=== PATIENT | female | born 1935 | race Caucasian/White ===

== ENCOUNTER 2020-04-18 21:53 | Emergency (ER) | payer MEDICARE, SELFPAY ==
--- NOTE | ~2020-04-18 | CT_ITS ---
EXAMINATION: CT cervical spine wo con DATE: 04/18/2020 22:40 INDICATION: Neck pain TECHNIQUE: Computed tomography (CT) of the cervical spine was performed without intravenous contrast. The dose-length product (DLP) was 410.39 mGy-cm. Automated exposure control and iterative reconstruc tion technique were employed. COMPARISON: None FINDINGS: There is a type II dens fracture with sclerotic margins, a chronic appearance. No acute fra cture is identified. There are 2 mm of anterolisthesis of C4 on C5 and 1 mm retrolisthesis of C5 on C 6. There is complete loss of intervertebral disc space height at C5-6 and C6-7 and moderate loss of i ntervertebral disc space height at C3-4 and C4-5. 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 The prevertebral soft tissues are normal. IMPRESSION: 1. No acute osseous abnormality. 2. Chronic type II dens fracture. 3. Severe cervical spondylosis. Reviewed, dictated and finalized at location A.
--- NOTE | ~2020-04-18 | CT_ITS ---
EXAMINATION: CT brain wo con INDICATION: Head injury COMPARISON: None TECHNIQUE: Standard unenhanced head CT. The dose-length product (DLP) was 605.33 mGy-cm. The mA was a djusted according to patient size. Iterative reconstruction technique was employed. FINDINGS: There is no acute intraparenchymal hemorrhage. No evidence of mass lesion. No evidence of a cute infarction. There is mild periventricular and subcortical hypodensity probably related to small vessel ischemic disease. There is mild prominence of the sulci and ventricles related to cerebral atr ophy. Intracranial calcified cerebral atherosclerosis is noted. There are no extra-axial collections. There is no mass effect or midline shift. Changes in the globes are likely from ocular lens surgery. The visualized sinuses and mastoid air cells are well aerated. IMPRESSION: 1. No acute intracranial abnormality. 2. Age related findings. Reviewed, dictated and finalized at location A.
[2020-04-18 21:55] VITALS: BP 146/79; PULSE 66; RESP 20; TEMP 36.7; O2SAT 99
--- NOTE | 2020-04-18 21:59 | ED.FALL ---
HPI - Fall General Chief Complaint: Fall Stated Complaint: fall Time Seen by Provider: 04/18/20 21:54 History of Present Illness HPI Narrative: Unwitnessed fall at the [facility]. Reportedly c/o hip pain after the fall. She now reports pain in everywhere, but provides no specifics. History limited due to dementia. Related Data Home Medications Medication Instructions Recorded Confirmed white petrolatum each EACH EYE 09/15/19 09/15/19 Allergies Allergy/AdvReac Type Severity Reaction Status Date / Time codeine Allergy Unknown Unknown Verified 04/18/20 22:05 Penicillins Allergy Unknown Unknown Verified 04/18/20 22:05 Sulfa (Sulfonamide Allergy Unknown Unknown Verified 04/18/20 22:05 Antibiotics) Review of Systems Review of Systems: ROS unobtainable: Yes unobtainable due to mental status [facility] Social History Social History (Updated 04/19/20 @ 04:13 by Jose R David MD) Living arrangements: [facility] Exam Const: General: no acute distress and alert HENMT: Head: normal to inspection Eyes: Pupils: Equal, round and reactive pupils present Resp: Effort & Inspection: normal respiratory effort Auscultation: clear to auscultation bilaterally Cardio: Rate: regular rate Rhythm: regular rhythm Back/Spine/Pelvis: Other: Diffuse musculoskeletal tenderness without obvious trauma Skin: Wounds: no wounds Neuro: General: moves all extremities and no focal motor deficits Speech: normal speech Course Vital Signs Vital signs: Vital Signs Temperature 36.7 C 04/18/20 21:55 Pulse Rate 66 04/18/20 21:55 Respiratory Rate 20 04/18/20 21:55 Blood Pressure 146/79 H 04/18/20 21:55 Pulse Oximetry 99 04/18/20 21:55 Temperature 36.7 C 04/18/20 21:55 Pulse Rate 62 04/19/20 00:55 Respiratory Rate 16 04/19/20 00:55 Blood Pressure 130/73 04/19/20 00:55 Pulse Oximetry 95 04/19/20 00:55 MDM - Fall MDM Narrative Medical decision making narrative: CT of head and neck negative. Ambulating at baseline prior to discharge Medical Records Attestation: I reviewed the patient's medical records. Lab Data Attestation: I reviewed the patient's lab results. Discharge Plan Discharge Clinical Impression: Closed head injury Qualifiers: Encounter type: initial encounter Qualified Code(s): S09.90XA - Unspecified injury of head, initial encounter Patient Disposition: [facility] Living Condition: Stable Instructions: Head Injury (ED) Prescriptions: No Action amlodipine 5 mg tablet RF: 0 bupropion HCl 150 mg tablet extended release 24 hr RF: 0 escitalopram oxalate 10 mg tablet RF: 0 isosorbide mononitrate 30 mg tablet extended release 24 hr RF: 0 sitagliptin-metformin [Janumet XR] 50-500 mg tablet, ER multiphase 24 hr RF: 0 lisinopril 10 mg tablet RF: 0 ergocalciferol (vitamin D2) 50,000 unit capsule RF: 0 donepezil 10 mg tablet 10 mg PO ONCE Qty: 1 RF: 0 Myrbetriq 25 mg tablet extended release 24 hr 25 mg PO DAILY Qty: 1 RF: 0 white petrolatum Ointment EACH EYE RF: 0 atorvastatin 40 mg tablet 40 mg PO DAILY Qty: 1 RF: 0 metoclopramide HCl 10 mg tablet 10 mg PO Q6H PRN (Reason: nausea and vomiting) Qty: 1 RF: 0 polyethylene glycol 3350 [Miralax] 17 gram/dose powder 17 gm PO DAILY Qty: 510 RF: 0 acetaminophen 325 mg capsule 650 mg PO Q6H PRN (Reason: fever or pain) Qty: 1 RF: 0 albuterol sulfate 90 mcg/actuation HFA aerosol inhaler 1 inhalation INHALATION Q6H PRN (Reason: shortness of breath or wheezing) Qty: 18 RF: 0 loperamide 2 mg capsule See Rx Instructions PO Q2-4H PRN (Reason: loose stool) Qty: 1 RF: 0 ondansetron 4 mg tablet,disintegrating 4 mg PO Q6H PRN (Reason: nausea and vomiting) Qty: 1 RF: 0 tramadol 50 mg tablet 50 mg PO Q12H PRN (Reason: pain) Qty: 1 RF: 0 diphenhydramine HCl 25 mg capsule 25 mg PO
--- NOTE | 2020-04-18 23:57 | PC.NURSE ---
Patient report called to Margaret, patient's primary careers counsellor at [facility] at [phone]. Patient resting on stretcher, patient offers no complaints at this time. Patient awaiting transport back to her facility.
[2020-04-19 00:04] VITALS: BP 125/73; PULSE 65; RESP 19; O2SAT 97
[2020-04-19 00:55] VITALS: BP 130/73; PULSE 62; RESP 16; O2SAT 95
== END 2020-04-19 00:55 ==
PROVIDERS: Emergency Provider Emergency Medicine; PCP Internal Medicine
DX: S09.90XA Unspecified injury of head, initial encounter (principal); F03.90 Unspecified dementia, unspecified severity, without behavioral disturbance, psychotic disturbance, mood disturbance, and anxiety; W19.XXXA Unspecified fall, initial encounter
CPT/HCPCS: 70450; 72125; 99284

== ENCOUNTER 2020-05-19 11:45 | Emergency (ER) | payer MEDICARE, SELFPAY ==
--- NOTE | ~2020-05-19 | XR_ITS ---
EXAMINATION: XR chest 1V portable DATE: 05/19/2020 16:05 INDICATION: Mental status change. TECHNIQUE: A single frontal view of the chest was obtained. COMPARISON: Chest 2 views 01/05/2019 FINDINGS: Sensitivity is decreased by obesity. Calcified right lung nodules and calcified right hilar lymph nodes are consistent with old granulomatous disease. No pleural effusion or pneumothorax. The heart size is normal. There is a suture anchor in right humeral head. IMPRESSION: 1. No acute cardiopulmonary disease. Reviewed, dictated and finalized at location A.
--- NOTE | ~2020-05-19 | CT_ITS ---
EXAMINATION: CT brain wo con DATE: 05/19/2020 16:00 INDICATION: Mental status change. TECHNIQUE: Computed tomography (CT) of the head was performed without intravenous contrast. The mA wa s adjusted according to patient size. Iterative reconstruction technique was employed. The dose-lengt h product was 605.33 mGy-cm. COMPARISON: Head CT 04/18/2020 FINDINGS: There are scattered areas of low attenuation in the cerebral white matter, which is within normal limits for the patient's age. There is no intracranial hemorrhage or acute infarction. There i s a 1.4 x 0.7 x 0.6 cm calcific extra-axial mass to the left of the cavernous sinus. The ventricles a re normal in size. There is mild mucosal thickening in the paranasal sinuses. The orbits are normal. There is a trace right mastoid effusion. IMPRESSION: 1. Calcified mass of the left of the cavernous sinus, which may be a meningioma or dural calcificatio n. Reviewed, dictated and finalized at location A. IMPRESSION: 1. Calcified mass of the left of the cavernous sinus, which may be a meningioma or dural calcification.
[2020-05-19 11:52] VITALS: BP 135/64; PULSE 68; RESP 18; TEMP 36.7; O2SAT 93
--- NOTE | 2020-05-19 15:02 | ED.GENADULT ---
HPI - General Adult General Chief complaint: Nausea/Vomiting/Diarrhea Stated complaint: N/V Time Seen by Provider: 05/19/20 13:11 History of Present Illness HPI narrative: Patient [facility] because of nausea and vomiting. EMS reported that staff at the [facility] reported that patient vomited 1 time today and that she is more altered than normal. EMS stated that staff was not sure what her normal mentation is but that she has dementia. Patient is alert to self at time of her arrival. No other concern at this time. Patient does not know why she here, currently on 3 L oxygen by nasal cannula, denying any complaint, looks comfortable, patient is DNR. Related Data Home Medications Medication Instructions Recorded Confirmed white petrolatum each EACH EYE 09/15/19 09/15/19 carbidopa-levodopa [Sinemet] 1 tablet PO BID 05/19/20 cranberry mg 05/19/20 emollient [Vanicream] applic TOPICAL 05/19/20 memantine [Namenda] 5 mg PO BID 05/19/20 tazarotene 1 applic TOPICAL DAILY 05/19/20 triamcinolone acetonide 1 applic TOPICAL BID 05/19/20 Allergies Allergy/AdvReac Type Severity Reaction Status Date / Time codeine Allergy Unknown Unknown Verified 04/18/20 22:05 Penicillins Allergy Unknown Unknown Verified 04/18/20 22:05 Sulfa (Sulfonamide Allergy Unknown Unknown Verified 04/18/20 22:05 Antibiotics) Review of Systems Review of Systems: Narrative: Unable to obtain because of dementia PMFSH Past Medical History Medical History Dementia in other diseases classified elsewhere without behavioral disturbance Essential (primary) hypertension Type 2 diabetes mellitus with complications Exam Narrative: Exam Narrative: General appearance: Well-developed, well-nourished, patient laying down in bed, looks comfortable, does not look in pain or distress Skin: Normal color Head: Normocephalic, nontraumatic Eyes: Clear conjunctiva ENT: Oropharynx normal, ears normal, nose normal Neck: Supple, nontender Chest and respiratory: Airway patent, no respiratory distress, no accessory muscle use Heart: Regular rate/rhythm Abdomen: Soft, nontender, no organomegaly, quiet bowel sounds Vascular: Normal peripheral pulses, normal capillary refill. Musculoskeletal: Normal range of motion, nontender back Neurologic: Alert and oriented to her name and age only, when he asked her anything else she just look at you without answering Course Course Emergency Course: Stable Vital Signs Vital signs: Vital Signs Temperature 36.7 C 05/19/20 11:52 Pulse Rate 68 05/19/20 11:52 Respiratory Rate 18 05/19/20 11:52 Blood Pressure 135/64 05/19/20 11:52 Pulse Oximetry 93 05/19/20 11:52 Temperature 36.4 C 05/19/20 16:33 Pulse Rate 60 05/19/20 16:33 Respiratory Rate 20 05/19/20 16:33 Blood Pressure 133/68 05/19/20 16:33 Pulse Oximetry 96 05/19/20 16:33 Medical Decision Making MDM Narrative Medical decision making narrative: Vomiting, change mental status. Nonspecific symptoms. My plan to get labs, UA, CT head rule out any underlying cause. Vital Signs Vital Signs: Vital Signs Temperature 36.7 C 05/19/20 11:52 Pulse Rate 68 05/19/20 11:52 Respiratory Rate 18 05/19/20 11:52 Blood Pressure 135/64 05/19/20 11:52 Pulse Oximetry 93 05/19/20 11:52 Temperature 36.4 C 05/19/20 16:33 Pulse Rate 60 05/19/20 16:33 Respiratory Rate 20 05/19/20 16:33 Blood Pressure 133/68 05/19/20 16:33 Pulse Oximetry 96 05/19/20 16:33 Lab Data Result diagrams: 05/19/20 15:29 05/19/20 15:29 Labs: Lab Results 05/19/20
[2020-05-19 15:27] LABS: Add Urine Microscopic? YES; Appearance Urine Clear (Clear); Bacteria Urine Trace /hpf; Bilirubin Urine Negative (Negative); Blood Urine Negative (Negative); Color Urine Yellow (Yellow); Glucose Urine UA 1+ mg/dL (Negative); Ketones Urine Trace mg/dL (Negative); Leukocyte Esterase Ur Negative LEU/UL (Negative); Mucus Urine Rare /lpf; Nitrate Urine Positive (Negative); Protein Urine Negative (Negative); RBC Urine 0-2 /hpf (0-2); Specific Grav Ur 1.017 (1.001-1.035); Squamous Epithelial Cell Urine Rare /hpf (Few); Urobilinogen Urine Negative mg/dL (<2.0); WBC Urine 0-3 /hpf
[2020-05-19 15:35] LABS: Basophils Absolute Auto 0.1 K/mm3 (0.0-0.1); Basophils Percent Auto 0.5 % (0.2-1.2); Eosinophils Absolute Auto 0.1 K/mm3 (0-0.3); Eosinophils Percent Auto 0.7 % (0-4.4); Hematocrit 37.3 % (37.0-47.0); Immature Granulocyte Absolute 0.07 K/mm3 (0.00-0.031); Immature Granulocyte Percent A 0.7 % (0-0.5); Lymphocytes Absolute Auto 1.43 K/mm3 (0.9-3.2); Lymphocytes Percent Auto 14.9 % (18.3-44.2); Mean Corpuscular HGB Conc 32.2 g/dl (32-36); Mean Corpuscular Hemoglobin 28.2 pg (26-34); Mean Corpuscular Volume 87.6 fl (80-100); Mean Platelet Volume 11.2 fl (7.4-10.4); Monocytes Absolute Auto 0.9 K/mm3 (0.1-0.6); Monocytes Percent Auto 9.1 % (2.6-8.5); Neutrophils Absolute Auto 7.1 K/mm3 (1.3-6.7); Neutrophils Percent Auto 74.1 % (45.5-73.1); Platelet Count Result 217 k/mm3 (150-375); Red Blood Count 4.26 M/mm3 (4.2-5.4); Red Cell Distribution Width 14.3 % (11.5-14.5); White Blood Count 9.6 K/mm3 (4.5-10.0)
[2020-05-19 15:47] LABS: Alanine Aminotransferase 10 U/L (4-35); Albumin Level 3.5 g/dL (3.5-5.1); Alkaline Phosphatase 82 U/L (38-126); Aspartate Amino Transferase 18 U/L (14-36); Bilirubin,Total 0.2 mg/dL (0.2-1.3); Blood Urea Nitrogen 17 mg/dL (7-17); Calcium 8.7 mg/dL (8.4-10.2); Carbon Dioxide 27 mmol/L (22-30); Chloride 104 mmol/L (98-107); Estimated CRCL calculation 41 ml/min; Estimated Glomerular Filt Rate > 60; Glucose 132 mg/dL (65-105); Lipase 85 U/L (23-300); Potassium 3.4 mmol/L (3.4-5.0); Sodium 138 mmol/L (137-145)
[2020-05-19 15:58] LABS: Troponin I < 0.012 ng/mL (0.000-0.034)
[2020-05-19 16:33] VITALS: BP 133/68; PULSE 60; RESP 20; TEMP 36.4; O2SAT 96
[2020-05-19 17:36] VITALS: BP 132/59; PULSE 59; RESP 16; O2SAT 94
[2020-05-19 18:32] VITALS: BP 139/87; PULSE 64; RESP 18; TEMP 36.9; O2SAT 97
[2020-05-19 22:04] VITALS: BP 148/75; PULSE 64; RESP 18; TEMP 37.1; O2SAT 95
== END 2020-05-19 22:04 ==
PROVIDERS: Emergency Provider Emergency Medicine; PCP Internal Medicine
DX: N39.0 Urinary tract infection, site not specified (principal); I10 Essential (primary) hypertension; E11.9 Type 2 diabetes mellitus without complications; F03.90 Unspecified dementia, unspecified severity, without behavioral disturbance, psychotic disturbance, mood disturbance, and anxiety
CPT/HCPCS: 36415; 51701; 70450; 71045; 80053; 81001; 83690; 84484; 85025; 96365; 99284; J0696

== ENCOUNTER 2020-06-16 22:52 | Emergency (ER) | payer MEDICARE, MEDICAID, SELFPAY ==
--- NOTE | ~2020-06-16 | CT_ITS ---
EXAMINATION: CT brain wo con, CT cervical spine wo con EXAM DATE: 06/16/2020 23:17 INDICATION: Fall, posterior head injury. TECHNIQUE: Spiral CT of the head was performed without contrast. Axial, coronal and sagittal images were reviewed. Spiral CT of the cervical spine was performed without contrast. Axial images were rev iewed. Coronal and sagittal reformatted images were also reviewed. The dose-length product (DLP) fo r this examination was 605.33 (accession [id number]), 411.08 (accession [id number]) mGy-cm. The exposure was tailored according to patient size, and iterative reconstruction (ASIR) was used as additional dose reduction technique. Comparison is made to prior examination from 05/19/2020, 0. FINDINGS: HEAD CT: There is no acute intraparenchymal hemorrhage. No evidence of intraparenchymal brain mass l esion. No evidence of acute infarction. There is mild periventricular and subcortical hypodensity, n onspecific but probably related to small vessel ischemic disease. There is moderate prominence of t he sulci and ventricles related to cerebral atrophy. There is intracranial carotid arteriosclerosis . There is no mass effect or midline shift. There is no obstructive hydrocephalus suspected. There are no extra-axial collections. There are no acute calvarial fractures. The orbits are unremarkabl e. Soft tissue is unremarkable. The visualized sinuses and mastoid air cells are well aerated. CERVICAL CT: Again there is osseous fusion of the odontoid process to anterior arch of C1, with chron ic appearing type II odontoid fracture versus congenital nonunion of the odontoid. Appearance is unch anged compared to prior study, chronic. No subluxation of this. There is no evidence of acute cervica l fracture. Pre-dens space is normal. Prevertebral soft tissue is normal. There are no soft tissue abnormalities identified. There is no disc space widening or traumatic vertebral body subluxation s uspected. Advanced cervical spondylosis again noted. IMPRESSION: 1. No acute intracranial findings or cervical fracture. 2. 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 3. Advanced cervical spondylosis. 4. Age-related intracranial findings Reviewed, dictated and finalized at location A. IMPRESSION: 1. No acute intracranial findings or cervical fracture. 2. 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 3. Advanced cervical spondylosis. 4. Age-related intracranial findings
[2020-06-16 22:55] VITALS: BP 108/49; PULSE 73; RESP 18; TEMP 36.8; O2SAT 96
--- NOTE | 2020-06-16 22:57 | ED.FALL ---
HPI - Fall General Chief Complaint: Fall Stated Complaint: FALL History of Present Illness HPI Narrative: History limited by gia Brought in from alf after a fall. She fell backwards in the restroom and struck the back of her head. Per EMS she was having some neck pain. When I ask she tells me that she hurts everywhere. Related Data Home Medications Medication Instructions Recorded Confirmed carbidopa-levodopa [Sinemet] 1 tablet PO BID 05/19/20 cranberry mg 05/19/20 memantine [Namenda] 5 mg PO BID 05/19/20 Allergies Allergy/AdvReac Type Severity Reaction Status Date / Time codeine Allergy Unknown Unknown Verified 06/16/20 23:11 Sulfa (Sulfonamide Allergy Unknown Unknown Verified 06/16/20 23:11 Antibiotics) Penicillins AdvReac Unknown Nausea Verified 06/16/20 23:11 Review of Systems Review of Systems: ROS unobtainable: Yes unobtainable due to mental status PMFSH Past Medical History Medical History Dementia in other diseases classified elsewhere without behavioral disturbance Essential (primary) hypertension Type 2 diabetes mellitus with complications Social History Social History (Updated 06/17/20 @ 04:15 by Jose R David MD) Living arrangements: alf Exam Const: General: no acute distress and alert Nutritional Appearance: well nourished Other: Oriented to self HENMT: Head: normal to inspection Eyes: Pupils: Equal, round and reactive pupils present Neck: Neck: normal visual inspection Resp: Effort & Inspection: normal respiratory effort Auscultation: clear to auscultation bilaterally Cardio: Rate: regular rate Rhythm: regular rhythm Back/Spine/Pelvis: Other: No obvious midline tenderness Skin: General skin exam: normal color Wounds: no wounds Neuro: General: moves all extremities and CN's II-XI intact bilaterally Speech: normal speech Extrem: General: normal to inspection Course Vital Signs Vital signs: Vital Signs Temperature 36.8 C 06/16/20 22:55 Pulse Rate 73 06/16/20 22:55 Respiratory Rate 18 06/16/20 22:55 Blood Pressure 108/49 L 06/16/20 22:55 Pulse Oximetry 96 06/16/20 22:55 Temperature 36.8 C 06/16/20 22:55 Pulse Rate 98 06/17/20 02:29 Respiratory Rate 20 06/17/20 02:29 Blood Pressure 125/73 06/17/20 02:29 Pulse Oximetry 98 06/17/20 02:29 MDM - Fall MDM Narrative Medical decision making narrative: When asked she reports pain and tenderness everywhere. When palpated she does not respond as though she has any tenderness. No obvious injury noted. CT of the head and neck negative. Medical Records Attestation: I reviewed the patient's medical records. Imaging Data Radiologist's impression: ITS Impressions Cervical Spine CT 06/16/20 23:21 IMPRESSION: 1. No acute intracranial findings or cervical fracture. 2. 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 3. Advanced cervical spondylosis. 4. Age-related intracranial findings Head CT 06/16/20 23:21 IMPRESSION: 1. No acute intracranial findings or cervical fracture. 2. 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 3. Advanced cervical spondylosis. 4. Age-related intracranial findings Discharge Plan Discharge Clinical Impression: Neck pain Patient Disposition: NH [facility]idential/[facility]st Living Condition: Stable Instructions: Neck Pain (ED) Prescriptions: No Action carbidopa-levodopa [Sinemet] 25-250 mg Tablet 1 tablet PO BID RF: 0 cranberry 400 mg Capsule RF: 0 memantine [Namenda] 5 mg Tablet 5 mg PO BID RF: 0 nitrofurantoin monohyd/m-cryst [Macrobid] 100 mg capsule 100 mg PO Q12H 5 Days Qty: 10 RF: 0 amlodipine 5 mg tablet RF: 0 bupropion HCl 150 mg tablet extended release 24 hr RF: 0 escitalopram oxa
[2020-06-17 00:27] VITALS: BP 113/67; PULSE 68; RESP 18; O2SAT 97
--- NOTE | 2020-06-17 00:47 | PC.NURSE ---
steven darby converse with fredrick tubbs
--- NOTE | 2020-06-17 02:24 | PC.NURSE ---
awaiting mendiola since 99, they advised 330, pending to call another ems.
[2020-06-17 02:29] VITALS: BP 125/73; PULSE 98; RESP 20; O2SAT 98
--- NOTE | 2020-06-17 02:53 | PC.NURSE ---
yvonne pending for transport
== END 2020-06-17 03:05 ==
PROVIDERS: Emergency Provider Emergency Medicine; PCP Internal Medicine
DX: M54.2 Cervicalgia (principal); I10 Essential (primary) hypertension; E11.9 Type 2 diabetes mellitus without complications; F03.90 Unspecified dementia, unspecified severity, without behavioral disturbance, psychotic disturbance, mood disturbance, and anxiety; M47.812 Spondylosis without myelopathy or radiculopathy, cervical region
CPT/HCPCS: 70450; 72125; 99284

== ENCOUNTER 2020-08-03 13:27 | Emergency (ER) | payer MEDICARE, MEDICAID, SELFPAY ==
--- NOTE | ~2020-08-03 | CT_ITS ---
EXAMINATION: CT brain wo con DATE: 08/03/2020 17:41 INDICATION: Altered mental status TECHNIQUE: Computed tomography (CT) of the head was performed without intravenous contrast. Sagittal and coronal reconstructions were performed. The mA was adjusted according to patient size. Iterative reconstruction technique was employed. The dose-length product was 605.33 mGy-cm. COMPARISON: head CT dated 06/16/2020 and 05/19/2020 FINDINGS: No acute intracranial hemorrhage or acute infarction. There is symmetric prominence of the sulci and subarachnoid spaces overlying the convexities consistent with moderate age-appropriate diffuse cerebr al volume loss. Mild scattered periventricular and subcortical white matter hypoattenuation consiste nt with chronic small vessel ischemic disease. 12 x 7 x 6 mm calcified extra-axial mass to the left of the cavernous sinus most likely either meningioma or dural calcification. No other masses identifi ed. The orbits are normal. Mild mucosal thickening in the bilateral ethmoid sinuses. Unchanged trace right mastoid effusion. Intracranial calcified cerebral atherosclerosis is noted. IMPRESSION: 1. No acute intracranial process. 2. Chronic small calcified extra-axial mass to the left of the cavernous sinus most likely either a m eningioma or dural calcification. 3. Age-related changes including moderate diffuse volume loss and mild scattered white matter hypoatt enuation consistent with chronic small vessel ischemic disease. Reviewed, dictated and finalized at location A. IMPRESSION: 1. No acute intracranial process. 2. Chronic small calcified extra-axial mass to the left of the cavernous sinus most likely either a meningioma or dural calcification. 3. Age-related changes including moderate diffuse volume loss and mild scattere d white matter hypoattenuation consistent with chronic small vessel ischemic di sease.
--- NOTE | ~2020-08-03 | CT_ITS ---
EXAMINATION: CT abdomen pelvis w con DATE: 08/03/2020 17:41 INDICATION: Abdominal pain TECHNIQUE: Computed tomography (CT) of the abdomen and pelvis was performed with 100 mL Omnipaque-350 intravenous contrast. Automated exposure control and iterative reconstruction technique were employe d. The dose-length product was 641.80 mGy-cm. COMPARISON: None FINDINGS: Mosaic attenuation in the bilateral lower lungs likely combination of atelectasis and subsegmental ai r trapping related to small airway disease. There are few scattered bilateral calcified pulmonary nod ules as well as calcified bilateral hilar and mediastinal lymph nodes and a few splenic calcification s, all consistent with old granulomatous disease. Heart size is normal. No pericardial or pleural eff usion. Moderate-sized sliding-type hiatal hernia. Cholecystectomy clips at the gallbladder fossa. Digna er and bilateral adrenal glands are normal. A few punctate calcifications along the otherwise normal- appearing pancreas which may represent sequela of chronic pancreatitis. Bilateral renal cysts the lar gest on the left measuring 2.9 cm. There is extensive colonic diverticulosis with a sigmoid predomina nce. There is no adjacent inflammatory change to suggest diverticulitis. 1.2 cm likely lipoma along the ascending colon. Bowels are otherwise unremarkable with no obstruction. The appendix is not visu alized. No pericecal inflammatory change to suggest acute appendicitis. Bladder, uterus and bilateral adnexa are unremarkable. No free intraperitoneal gas or fluid. No pathologically enlarged abdominal or pelvic lymphadenopathy. Severe thoracolumbar spondylosis. L4 and L5 laminectomies with L4-L5 combi jony instrumented anterior and posterior spinal fusion. Chronic appearing compression fractures at T10 -T12 with the age indeterminate but more recent-appearing L1 compression fracture. There are retained leads in the posterior paraspinal soft tissues at the lumbar spine. IMPRESSION: 1. No acute intra-abdominal/pelvic process. 2. Extensive diverticulosis. 3. Moderate-sized sliding-type hiatal hernia. 4. Relatively recent-appearing L1 compression fracture with more chronic appearing compression fractu res at T10-T12. Reviewed, dictated and finalized at location A. IMPRESSION: 1. No acute intra-abdominal/pelvic process. 2. Extensive diverticulosis. 3. Moderate-sized sliding-type hiatal hernia. 4. Relatively recent-appearing L1 compression fracture with more chronic appear ing compression fractures at T10-T12.
[2020-08-03 13:54] VITALS: BP 132/87; PULSE 76; RESP 16; TEMP 36.5; O2SAT 97
[2020-08-03 15:49] LABS: Basophils Absolute Auto 0.1 K/mm3 (0.0-0.1); Basophils Percent Auto 0.5 % (0.2-1.2); Eosinophils Percent Auto 0.3 % (0-4.4); Hematocrit 43.6 % (37.0-47.0); Hemoglobin 14.3 g/dL (12.0-15.0); Immature Granulocyte Absolute 0.15 K/mm3 (0.00-0.031); Immature Granulocyte Percent A 1.3 % (0-0.5); Lymphocytes Absolute Auto 1.09 K/mm3 (0.9-3.2); Lymphocytes Percent Auto 9.5 % (18.3-44.2); Mean Corpuscular HGB Conc 32.8 g/dl (32-36); Mean Corpuscular Hemoglobin 28.4 pg (26-34); Mean Corpuscular Volume 86.7 fl (80-100); Mean Platelet Volume 12.2 fl (7.4-10.4); Monocytes Absolute Auto 0.7 K/mm3 (0.1-0.6); Neutrophils Absolute Auto 9.5 K/mm3 (1.3-6.7); Neutrophils Percent Auto 82.4 % (45.5-73.1); Platelet Count Result 223 k/mm3 (150-375); Red Blood Count 5.03 M/mm3 (4.2-5.4); Red Cell Distribution Width 14.3 % (11.5-14.5); White Blood Count 11.5 K/mm3 (4.5-10.0)
[2020-08-03 16:06] LABS: Chloride 105 mmol/L (98-107)
[2020-08-03] MEDS: SODIUM CHLORIDE 0.9% IV 1,000 ML 999 ML IV CONT ×2 (16:10→18:34)
[2020-08-03] MEDS: ONDANSETRON INJ 4 MG/2 ML VIAL IV PUSH (16:11)
[2020-08-03 16:15] VITALS: BP 119/72; PULSE 87; RESP 17; O2SAT 100
[2020-08-03 16:28] LABS: Albumin Level 3.8 g/dL (3.5-5.1); Alkaline Phosphatase 122 U/L (38-126); Anion Gap 9 mmol/L (8-16); Aspartate Amino Transferase 15 U/L (14-36); Bilirubin,Total 0.5 mg/dL (0.2-1.3); Blood Urea Nitrogen 21 mg/dL (7-17); Calcium 9.8 mg/dL (8.4-10.2); Carbon Dioxide 24 mmol/L (22-30); Estimated CRCL calculation 46 ml/min; Estimated Glomerular Filt Rate > 60; Glucose 149 mg/dL (65-105); Lipase 86 U/L (23-300); Potassium 4.6 mmol/L (3.4-5.0); Sodium 138 mmol/L (137-145)
[2020-08-03 16:52] LABS: Alanine Aminotransferase < 4 U/L (4-35)
--- NOTE | 2020-08-03 17:18 | PC.NURSE ---
Pt taken to CT scan
--- NOTE | 2020-08-03 17:42 | ED.GENADULT ---
HPI - General Adult General Chief complaint: Abdominal Pain Stated complaint: NV, lethargy, confusion Time Seen by Provider: 08/03/20 13:50 Source: family and EMS History of Present Illness HPI narrative: Patient is a 84 y/o female sent by [facility] for vomiting, diarrhea and decreased oral intake. Daughter states that she was told by staff at [facility] that patient has been having these symptoms for 3 days. There is no known alleviating or exacerbating factor. Patient is poor historian and unable to provide reliable history. Related Data Home Medications Medication Instructions Recorded Confirmed carbidopa-levodopa [Sinemet] 1 tablet PO BID 05/19/20 cranberry mg 05/19/20 memantine [Namenda] 5 mg PO BID 05/19/20 Allergies Allergy/AdvReac Type Severity Reaction Status Date / Time codeine Allergy Unknown Unknown Verified 08/03/20 14:22 Sulfa (Sulfonamide Allergy Unknown Unknown Verified 08/03/20 14:22 Antibiotics) Penicillins AdvReac Unknown Nausea Verified 08/03/20 14:22 Review of Systems Review of Systems: ROS unobtainable: Yes unobtainable due to mental status Exam Const: General: no acute distress and well developed Orientation/consciousness: oriented to person and confusion HENMT: Head: normocephalic Ears: external ears normal General nose exam: Normal external nose present Eyes: General: appearance normal, both eyes and all related structures Conjunctivae: conjunctivae normal Neck: Neck: normal visual inspection and full ROM Chest: Chest palpation & inspection: normal inspection of the chest and no tenderness Resp: Effort & Inspection: normal respiratory effort Auscultation: clear to auscultation bilaterally Cardio: Rate: regular rate Rhythm: regular rhythm GI: GI Palp: No abdominal tenderness and Yes Soft to palpation Skin: General skin exam: normal color and turgor normal Neuro: General: oriented to person and confusion Cognition (Neuro): abnormal cognition Extrem: General: normal to inspection, full ROM and no pedal edema Psych: Appearance: grossly normal Mental Status: mental status grossly normal Affect: normal affect Course Vital Signs Vital signs: Vital Signs Temperature 36.5 C 08/03/20 13:54 Pulse Rate 76 08/03/20 13:54 Respiratory Rate 16 08/03/20 13:54 Blood Pressure 132/87 08/03/20 13:54 Pulse Oximetry 97 08/03/20 13:54 Temperature 36.5 C 08/03/20 13:54 Pulse Rate 70 08/03/20 21:22 Respiratory Rate 16 08/03/20 21:22 Blood Pressure 134/63 08/03/20 21:22 Pulse Oximetry 96 08/03/20 21:22 Medical Decision Making Vital Signs Vital Signs: Vital Signs Temperature 36.5 C 08/03/20 13:54 Pulse Rate 76 08/03/20 13:54 Respiratory Rate 16 08/03/20 13:54 Blood Pressure 132/87 08/03/20 13:54 Pulse Oximetry 97 08/03/20 13:54 Temperature 36.5 C 08/03/20 13:54 Pulse Rate 70 08/03/20 21:22 Respiratory Rate 16 08/03/20 21:22 Blood Pressure 134/63 08/03/20 21:22 Pulse Oximetry 96 08/03/20 21:22 Lab Data Result diagrams: 08/03/20 15:40 08/03/20 15:40 Labs: Lab Results 08/03/20 08/03/20 08/03/20 Range/Units 15:40 15:40 20:38 WBC 11.5 H (4.5-10.0) K/mm3 RBC 5.03 (4.2-5.4) M/mm3 Hgb 14.3 (12.0-15.0) g/dL Hct 43.6 (37.0-47.0) % MCV 86.7 (80-100) fl MCH 28.4 (26-34) pg MCHC 32.8 (32-36) g/dl RDW 14.3 (11.5-14.5) % Plt Count 223 (150-375) k/mm3 MPV 12.2 H (7.4-10.4) fl Immature Gran % (Auto) 1.3 H (0-0.5) % Neut % (Auto) 82.4 H (45.5-73.1) % Lymph % (Auto) 9.5 L (18.3-44.2) % [place] % (Auto) 6.0 (2.6-8.5) % Eos % (Auto) 0.3 (0-4.4) % Baso % (Auto) 0.5 (0.2-1.2) % Lymph # (Auto) 1.09 (0.9-3.2) K/mm3 [place] # (Auto) 0.7 H (0.1-0.6) K/mm3 Eos # (Auto) 0.0 (0-0.3) K/mm3 Baso # (Auto) 0.1 (0.0-0.1) K/mm3 Abs Immat Gran (auto) 0.15 H (0.00-0.031) K/mm3 Absolute Neuts (auto) 9.5 H (
--- NOTE | 2020-08-03 17:48 | PC.NURSE ---
1 unsuccessful attempt at straight cath.
--- NOTE | 2020-08-03 18:19 | PC.NURSE ---
Several attempts to straight cath pt was attempted with no success. Pt is extremely swollen and is unable to be cathed. Informed Dr. Stokes of this and he states thats ok she will have to pee eventually .
[2020-08-03 20:34] VITALS: BP 126/87; PULSE 85; RESP 18; O2SAT 95
--- NOTE | 2020-08-03 20:35 | PC.NURSE ---
bladder scan 387ml
[2020-08-03 20:46] LABS: Add Urine Microscopic? YES; Appearance Urine Cloudy (Clear); Bacteria Urine 4+ /hpf; Bilirubin Urine Negative (Negative); Blood Urine Negative (Negative); Color Urine Yellow (Yellow); Glucose Urine UA Negative (Negative); Ketones Urine Trace mg/dL (Negative); Leukocyte Esterase Ur 3+ LEU/UL (Negative); Mucus Urine Heavy /lpf; Nitrate Urine Positive (Negative); Protein Urine Negative (Negative); Squamous Epithelial Cell Urine Few /hpf (Few); Urobilinogen Urine Negative mg/dL (<2.0); WBC Clumps Urine Present /HPF; WBC Urine >75 /hpf
[2020-08-03 20:59] LABS: Specific Grav Ur 1.056 (1.001-1.035)
[2020-08-03 21:22] VITALS: BP 134/63; PULSE 70; RESP 16; O2SAT 96
[2020-08-03 23:02] VITALS: BP 110/67; PULSE 87; RESP 16; O2SAT 95
[2020-08-03 23:52] VITALS: BP 117/74; PULSE 82; RESP 18; O2SAT 95
== END 2020-08-04 01:00 ==
PROVIDERS: Emergency Provider Emergency Medicine; PCP Internal Medicine
DX: R19.7 Diarrhea, unspecified (principal); R11.10 Vomiting, unspecified; N39.0 Urinary tract infection, site not specified
CPT/HCPCS: 36415; 70450; 74177; 80053; 81001; 83690; 85025; 87077; 87086; 87088; 87186; 96361; 96374; 99284; J2405; J7030; Q9967

== ENCOUNTER 2020-08-15 10:00 | Inpatient (IN) | payer MEDICARE, MEDICAID, SELFPAY ==
[2020-08-15] VITALS (12 sets, daily range): BP systolic 63–161; BP diastolic 38–127; PULSE 81–101; RESP 16–24; TEMP 36.2–37.3; O2SAT 84–100
--- NOTE | 2020-08-15 | ECG_ITS ---
Measurements Intervals [place] Rate: 101 P: 54 NJ: 144 QRS: 68 QRSD: 117 T: 10 QT: 342 QTc: 444 Interpretive Statements SINUS TACHYCARDIA FREQUENT ATRIAL PREMATURE COMPLEXES INTRAVENTRICULAR CONDUCTION DELAY BASELINE ARTIFACT- I, II, AVR, AVL, V1-V3 ABNORMAL ECG Electronically Signed On 08-16-2020 7:01:55 CDT by Lobito Moore D.O.
--- NOTE | ~2020-08-15 | XR_ITS ---
XR chest 1V portable 08/15/2020 10:56 Indication: Altered mental status Procedure: AP portable chest Comparison: 05/19/2020 Findings: Heart size normal for technique. No focal air space disease, pulmonary edema, pleural effus ion or suspected pneumothorax. Scattered calcified granulomas. No acute osseous abnormality. Impression: 1: No acute cardiopulmonary disease. Reviewed, dictated and finalized at location A. Impression: 1: No acute cardiopulmonary disease.
--- NOTE | ~2020-08-15 | CT_ITS ---
EXAMINATION: CT brain wo con DATE: 08/15/2020 10:09 INDICATION: Possible stroke TECHNIQUE: Computed tomography (CT) of the head was performed without intravenous contrast. The dose- length product was 605.33 mGy-cm. Automated exposure control and iterative reconstruction technique w ere employed. COMPARISON: CT dated 08/03/2012 FINDINGS: Generalized atrophy. Generalized atrophy. There are scattered moderate periventricular and subcortical white matter changes, most likely related to small vessel ischemic disease (microangiopat hy). No acute intracranial hemorrhage, infarction, mass or mass effect. Chronic small calcified extra -axial mass left of the cavernous sinus, most likely dural calcification or meningioma. No significan t change. Midline sagittal images demonstrate a normal corpus callosum and craniovertebral junction. There is hyperostosis frontalis interna. IMPRESSION: 1. No acute intracranial abnormality. No significant change. Reviewed, dictated and finalized at location A.
[2020-08-15 10:15] LABS: Glucose Point of Care 166 (65-105)
[2020-08-15 10:56] LABS: Basophils Absolute Auto 0.1 K/mm3 (0.0-0.1); Basophils Percent Auto 0.4 % (0.2-1.2); Eosinophils Percent Auto 0.1 % (0-4.4); Hematocrit 43.8 % (37.0-47.0); Hemoglobin 13.9 g/dL (12.0-15.0); Immature Granulocyte Absolute 0.41 K/mm3 (0.00-0.031); Immature Granulocyte Percent A 2.6 % (0-0.5); Lymphocytes Absolute Auto 1.11 K/mm3 (0.9-3.2); Mean Corpuscular HGB Conc 31.7 g/dl (32-36); Mean Corpuscular Hemoglobin 28.1 pg (26-34); Mean Corpuscular Volume 88.5 fl (80-100); Mean Platelet Volume 12.6 fl (7.4-10.4); Monocytes Absolute Auto 1.2 K/mm3 (0.1-0.6); Monocytes Percent Auto 7.4 % (2.6-8.5); Neutrophils Percent Auto 82.5 % (45.5-73.1); Platelet Count Result 122 k/mm3 (150-375); Red Blood Count 4.95 M/mm3 (4.2-5.4); Red Cell Distribution Width 15.2 % (11.5-14.5); White Blood Count 15.8 K/mm3 (4.5-10.0)
[2020-08-15 11:01] LABS: Add Urine Microscopic? YES; Appearance Urine Cloudy (Clear); Bacteria Urine Trace /hpf; Bilirubin Urine 1+ (Negative); Blood Urine Negative (Negative); Color Urine Amber (Yellow); Glucose Urine UA Negative (Negative); Hyaline Casts Urine 20-29 /lpf; INR 1.2; Ketones Urine Trace mg/dL (Negative); Leukocyte Esterase Ur Negative LEU/UL (Negative); Mucus Urine Rare /lpf; Nitrate Urine Negative (Negative); Protein Urine 1+ mg/dL (Negative); Prothrombin Time 14.4 Seconds (11.1-14.7); RBC Urine 0-2 /hpf (0-2); Specific Grav Ur 1.023 (1.001-1.035); Squamous Epithelial Cell Urine Many /hpf (Few)
[2020-08-15 11:02] LABS: Partial Thromboplastin Time 24.8 SECONDS (22.3-36.8)
[2020-08-15 11:18] LABS: Troponin I 0.361 ng/mL (0.000-0.034)
[2020-08-15] MEDS: SODIUM CHLORIDE 0.9% IV 1,000 ML 999 ML IV CONT (11:34)
[2020-08-15 11:38] LABS: Alanine Aminotransferase 15 U/L (4-35); Albumin Level 3.6 g/dL (3.5-5.1); Alkaline Phosphatase 96 U/L (38-126); Anion Gap 13 mmol/L (8-16); Aspartate Amino Transferase 57 U/L (14-36); Bilirubin,Total 0.7 mg/dL (0.2-1.3); Blood Urea Nitrogen 58 mg/dL (7-17); CRP 3.1 mg/dL (<1.0); Calcium 9.8 mg/dL (8.4-10.2); Carbon Dioxide 22 mmol/L (22-30); Chloride 111 mmol/L (98-107); Estimated CRCL calculation 16 ml/min; Estimated Glomerular Filt Rate 25; Glucose 159 mg/dL (65-105); Potassium 5.1 mmol/L (3.4-5.0); Sodium 146 mmol/L (137-145)
--- NOTE | 2020-08-15 11:45 | PC.NURSE ---
dr rocha made aware of hypotensive bp order given to start 1 l NS bolus
--- NOTE | 2020-08-15 11:53 | ED.AMS ---
HPI - Altered Mental Status General Chief Complaint: Altered Mental Status Stated Complaint: ams Time Seen by Provider: 08/15/20 10:33 Source: EMS and other (alf phone call) Mode of arrival: EMS History of Present Illness HPI narrative: Patient is 84 years old white female brought to the emergency room by ambulance because of unresponsiveness noticed at 9 AM. Last time patient was in her normal base of health, was last night. Patient had similar symptoms a few days ago was hospitalized at [facility], diagnosis of urinary tract infection, currently on cephalexin. The [facility] staff deny that the patient had any fever, chills, nausea, vomiting, coughing or anything unusual yesterday. Patient is DNR. I was able to talk to the patient's son, phone number is [phone] and confirmed that the patient is DNR, DNI also no invasive procedure including central line. complaint: confusion Related Data Home Medications Medication Instructions Recorded Confirmed cranberry 425 mg PO BID 05/19/20 08/15/20 memantine [Namenda] 5 mg PO BID 05/19/20 08/15/20 Myrbetriq 25 mg PO DAILY 08/15/20 08/15/20 Allergies Allergy/AdvReac Type Severity Reaction Status Date / Time codeine Allergy Unknown Unknown Verified 08/03/20 14:22 Sulfa (Sulfonamide Allergy Unknown Unknown Verified 08/03/20 14:22 Antibiotics) Penicillins AdvReac Unknown Nausea Verified 08/03/20 14:22 Review of Systems Review of Systems: Narrative: CONSTITUTIONAL: Denies fever, chills, or sweats. EYES: Denies visual changes, redness, or discharge. ENT: Denies rhinorrhea, congestion, sore throat, or otalgia. CARDIOVASCULAR: Denies chest pain, palpitations, or edema. RESPIRATORY: Denies cough or dyspnea. GASTROINTESTINAL: Denies abdominal pain, nausea, vomiting, or diarrhea. GENITOURINARY: Denies dysuria or hematuria. SKIN: Denies rash or itching. MUSCULOSKELETAL: Denies back pain, joint pain, or myalgia. NEUROLOGIC: Denies headache, numbness, or weakness. PSYCHIATRIC: Denies anxiety or depression. 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 Surgical History Surgical History (Updated 08/15/20 @ 16:38 by Jen Best NP) Hx of cholecystectomy Family History Family History (Updated 08/15/20 @ 16:38 by Jen Best NP) Unknown Unknown family medical history Social History Social History Smoking status: Never smoker Second hand tobacco smoke exposure: No Alcohol intake: never Substance use: never Spiritual care concerns: No Exam Narrative: Exam Narrative: General appearance: Well-developed, well-nourished Skin: Normal color Head: Normocephalic, nontraumatic Eyes: Clear conjunctiva ENT: Oropharynx normal, ears normal, nose normal Neck: Supple, nontender Chest and respiratory: Airway patent, no respiratory distress, no accessory muscle use Heart: Tachycardia Abdomen: Soft, nontender, no organomegaly, quiet bowel sounds Vascular: Patient is unresponsive Musculoskeletal: Patient does not follow verbal commands Neurologic: Awake, unresponsive except to painful stimulation
[2020-08-15 14:20] LABS: Reflex Lactic Acid Yes or No Add Lactic
--- NOTE | 2020-08-15 16:27 | PM.IMHP ---
H&P: HPI History of Present Illness Date/Time: 08/15/20 16:27 Chief complaint: Unresponsive, sepsis, RICH, elevated troponin Narrative: Do Hassan is a 84 year old female Who resides at [facility]. The patient has had frequent urinary tract infections that have been drug resistant. Today the patient was found to be unresponsive. She was recently hospitalized at [facility] approximately 2 weeks ago for urinary tract infection. The patient had come to [facility] prior to that was placed on oral medication for UTI. It looks like on 08/03/2020 the patient was treated here in our emergency room for urinary tract . The patient had some nausea and the vomiting diarrhea and decreased oral intake. The patient is on a puree diet at the intermediate due to her end-stage dementia and Parkinson's. The patient is not able to answer questions for his but her son who is the oldest son that is a durable power city attorney for healthcare. The patient is a DNR. The patient came here today due to similar symptoms. She was unresponsive that was noticed at 9:00 a.m. today. The patient was at her normal baseline last night. The patient was diagnosed with a urinary tract infection at [facility] and was placed on Keflex. No fever chills were noted. The ER physician spoke with the power city attorney her son who did not want any invasive procedures such as a central line. I spoke with her son César who stated that he just wants to have comfort measures for now. He already has called hospice in the family is going to have a meeting and decide on hospice. The family no longer wants any antibiotics her IV fluids or any labs or invasive procedures performed on the patient. They do not want her to be stuck for fingersticks for blood sugar checks either. Patient's potassium is noted to be 5.1. Sodium 146. Chloride 111. Creatinine is 1.90. Glucose 159. Lactic acid was 3.0 now 2.0 her troponin was noted to be 0.361. C reactive protein 3.1. Troponin 0.361. Patient initially was bolused with IV fluids started on cefepime aztreonam and Levaquin. The patient has had a drug resistant E coli ESBL back in July and is resistant to many of the medications. The patient is allergic to sulfa and penicillin. Her power city attorney stated that he did not want any further treatment for the patient no IV fluids and no antibiotics in the would like to go to hospice. Patient was admitted inpatient for the urinary tract infection to [facility] on the date of service 08/15/2020 Review of Systems Review of Systems: ROS unobtainable: Yes unobtainable due to mental status Constitutional: Constitutional: Reports as per HPI and Reports no additional constitutional complaints Eyes: Eyes: Reports as per HPI and Reports no additional eye complaints ENT: Reports system reviewed and no additional complaints, except as documented and Reports Normal hearing present Cardiovascular: Cardiovascular: Reports no additional cardiovascular complaints Respiratory: Respiratory: Reports no additional respiratory complaints and Reports no additional respiratory complaints Gastrointestinal: Gastrointestinal: Reports as per HPI and Reports no additional gastrointestinal complaints Musculoskeletal: Musculoskeletal: Reports no additional musculoskeletal complaints Integumentary/Breasts: Skin/Breast: Reports system reviewed and no additional complaints, except as docu and Reports as per HPI Neurologic: Reports system reviewed and no additional complaints, except as documented, Reports as per HPI and Reports Normal hearing present Psychiatric: Psychiatric: Reports no additional psychiatric complaints and Reports as per HPI Endocrine: Endocrine: Reports no additional endocrine complaints Hematologic/Lymphatic: Hematologic/Lymphatic: Reports no additional hematologic/lymphatic complaints Allergic/Immunologic: Allergic/Immunologic: Reports no additional allergic/immunologic co
--- NOTE | 2020-08-15 16:33 | ADMGEN ---
This patient, Do Hassan, was admitted to 3 Med Surg Room 303-01. Patient/family oriented to hospital policies and general routines including ID bracelet, bed and alarms, visiting hours, pain management, procedures, bathroom and other care routines, personal items, smoking policy, room service/diet, and visiting hours. Valuables list has been completed. Information on how to activate the Rapid Response Team has been discussed. Patient/Family are encouraged to report perceived risks to care and to ask questions if they do not understand what they are told or what they should do.
[2020-08-15] MEDS: SCOPOLAMINE 1.5 MG PATCH TRANSDERM (18:51)
[2020-08-15] MEDS: LORazepam INJ (*CRX) 2 MG/ML VIAL 0.5 MG IV PUSH (20:10)
[2020-08-16 06:20] VITALS: BP 104/51; PULSE 84; RESP 24; TEMP 36.3; O2SAT 95
--- NOTE | 2020-08-16 09:56 | PM.IMPN ---
Progress Note: A&P Assessment and Plan (1) Sepsis: Qualifiers: Sepsis acute organ dysfunction status: with acute organ dysfunction Sepsis type: sepsis due to unspecified organism Severe sepsis acute organ dysfunction type: unspecified Severe sepsis shock status: without septic shock Qualified Code(s): A41.9 - Sepsis, unspecified organism; R65.20 - Severe sepsis without septic shock Code(s): A41.9 - Sepsis, unspecified organism Status: Acute Assessment and Plan: Patient has had multiple UTIs with multi-drug resistant bacteria. Son wants comfort measures and plan is to discharge with hospice care tomorrow. She needs a COVID test to go back to [facility]. Son wishes for no lab work, IV fluids, antibiotics or vital signs. (2) UTI (urinary tract infection): Qualifiers: Urinary tract infection type: acute cystitis Hematuria presence: without hematuria Qualified Code(s): N30.00 - Acute cystitis without hematuria Code(s): N39.0 - Urinary tract infection, site not specified Status: Acute Assessment and Plan: Comfort measures. (3) RICH (acute kidney injury): Code(s): N17.9 - Acute kidney failure, unspecified Status: Acute Assessment and Plan: Suspect as a result of UTI, sepsis. Family wishes for no further intervention. (4) Elevated troponin: Code(s): R77.8 - Other specified abnormalities of plasma proteins Status: Acute Assessment and Plan: Troponin 0.361. No further workup or intervention per family wishes. (5) Type 2 diabetes mellitus with complications: Code(s): E11.8 - Type 2 diabetes mellitus with unspecified complications Status: Chronic Assessment and Plan: Family wishes for no further blood glucose checks. (6) Dementia in other diseases classified elsewhere without behavioral disturbance: Code(s): F02.80 - Dementia in other diseases classified elsewhere without behavioral disturbance Status: Chronic Assessment and Plan: Family describes she has had difficulty swallowing due to Parkinson's with end-stage dementia. Comfort care for now, discharge with hospice tomorrow. Subjective Date/time seen: 08/16/20 09:30 Interval history: Ms. Hassan is an 84yo F with Parkinson's dementia admitted for unresponsiveness and recent UTI. She is resting comfortably in bed at time of my exam but does not arouse much to verbal stimuli, although she did reply good morning when I told her good morning. She was not able to remain awake to answer any of my questions. Family is interested in pursuing hospice care with [facility]. Review of Systems Review of Systems: ROS unobtainable: Yes unobtainable due to medical condition Exam Narrative: Exam Narrative: General: Elderly female resting supine in bed in no acute distress. HEENT: Normocephalic, EOMI, oral mucosa dry. Cardiovascular: Rate and rhythm are regular. Respiratory: Lungs clear to auscultation all meza. Non-labored breathing. On supplemental O2. Abdomen: Soft, non-tender, non-distended, bowel sounds present. Extremities: Peripheral pulses intact. No edema. Neuro: Not responding much to verbal stimuli, resting comfortably. Unable to participate in a full neurologic exam. Objective Data Vital Signs Vital Signs: Last Vital Signs Temp 97.4 F L 08/16/20 06:20 Pulse 84 08/16/20 06:20 Resp 24 H 08/16/20 06:20 BP 104/51 L 08/16/20 06:20 Pulse Ox 95 08/16/20 06:20 Intake/Output Intake/Output: Intake & Output 08/13/20 08/14/20 08/15/20 08/16/20 23:59 23:59 23:59 23:59 Intake Total 1450 0 Output Total 0 Balance 1450 0
[2020-08-16 14:00] VITALS: BP 112/59; PULSE 87; RESP 16; TEMP 36.3; O2SAT 97
[2020-08-16 20:00] VITALS: BP 137/81; PULSE 86; RESP 16; TEMP 36.2; O2SAT 100
[2020-08-16] MEDS: fentaNYL CITRATE INJ (*CRX) 100 MCG/2 ML VIAL 25 MCG IV PUSH (20:54)
[2020-08-17 06:44] LABS: Estimated CRCL calculation 41 ml/min; Estimated Glomerular Filt Rate > 60
--- NOTE | 2020-08-17 12:39 | PCCCNOTE ---
Spoke with Bettie at [facility] [phone]. She is in the process of securing a hotel for the patient but does not yet have a location. Her current understanding is that it is going to be in [place]. Provided my call back number for additional information when she does have a location so that Care Coordination is able to provide a cab voucher to the patient
[2020-08-17 14:00] VITALS: BP 99/60; PULSE 89; RESP 16; TEMP 37.9; O2SAT 99
[2020-08-17 14:08] LABS: SARS-CoV-2 RNA PCR Negative
--- NOTE | 2020-08-17 14:34 | PM.DS ---
DS: Admitting Diagnosis Admitting Diagnosis Admitting Diagnosis: Unresponsive, sepsis, RICH, elevated troponin DS: Discharge Diagnosis Discharge Diagnosis (1) Sepsis: Qualifiers: Sepsis acute organ dysfunction status: with acute organ dysfunction Sepsis type: sepsis due to unspecified organism Severe sepsis acute organ dysfunction type: unspecified Severe sepsis shock status: without septic shock Qualified Code(s): A41.9 - Sepsis, unspecified organism; R65.20 - Severe sepsis without septic shock Code(s): A41.9 - Sepsis, unspecified organism Status: Acute Assessment and Plan: Date of Admission 08/15/20 Date of Discharge/DOS 08/17/20 Ms. Hassan is an 84yo F with history of dementia and type 2 diabetes mellitus who presented to the ED from the skilled nursing for evaluation of unresponsiveness. She has had multiple ED visits recently due to UTI, altered mental status and falls. Family decided on comfort care in the ED and met with [facility]. COVID discharge screen is negative. Patient discharged back to [facility] with hospice services. Prognosis is poor. Patient has had multiple UTIs with multi-drug resistant bacteria. Son opted for comfort measures and desired for no lab work, IV fluids, antibiotics or vital signs. (2) UTI (urinary tract infection): Qualifiers: Urinary tract infection type: acute cystitis Hematuria presence: without hematuria Qualified Code(s): N30.00 - Acute cystitis without hematuria Code(s): N39.0 - Urinary tract infection, site not specified Status: Acute Assessment and Plan: Comfort measures. (3) RICH (acute kidney injury): Code(s): N17.9 - Acute kidney failure, unspecified Status: Acute Assessment and Plan: Suspect as a result of UTI, sepsis. Family wishes for no further intervention. (4) Elevated troponin: Code(s): R77.8 - Other specified abnormalities of plasma proteins Status: Acute Assessment and Plan: Troponin 0.361. No further workup or intervention per family wishes. (5) Type 2 diabetes mellitus with complications: Code(s): E11.8 - Type 2 diabetes mellitus with unspecified complications Status: Chronic Assessment and Plan: Family wishes for no further blood glucose checks. (6) Dementia in other diseases classified elsewhere without behavioral disturbance: Code(s): F02.80 - Dementia in other diseases classified elsewhere without behavioral disturbance Status: Chronic Assessment and Plan: Family describes she has had difficulty swallowing due to Parkinson's with end-stage dementia. Discharged with hospice. DS: Summary Time Spent with Patient Time attestation: Total time spent providing and/or coordinating discharge services: 40 minutes Exam Narrative: Exam Narrative: General: Elderly female resting supine in bed in no acute distress. HEENT: Normocephalic, EOMI, oral mucosa dry. Cardiovascular: Rate and rhythm are regular. Respiratory: Lungs clear to auscultation all meza. Non-labored breathing. On supplemental O2. Abdomen: Soft, non-tender, non-distended, bowel sounds present. Extremities: Peripheral pulses intact. No edema. Neuro: Not responding much to verbal stimuli, resting comfortably. Unable to participate in a full neurologic exam. DS: Data Data Completed and Pending Labs on day of discharge: Labs from last 24 hours 08/17/20 08/17/20 05:45 01:21 Creatinine 0.70 Estim Creat Clear Calc 41 Estimated GFR > 60 SARS-CoV-2 RNA (RT-PCR) Negative Preliminary micro results at discharge
[2020-08-17] MEDS: LORazepam INJ (*CRX) 2 MG/ML VIAL 0.5 MG IV PUSH (15:16)
[2020-08-17 15:31] VITALS: TEMP 37.9
[2020-08-17] MEDS: ACETAMINOPHEN 325 MG SUPPOSITORY RECTAL (15:31)
--- NOTE | 2020-08-17 17:54 | PC.NURSE ---
1510 report called to the nurse virgil at [facility] . ambulance called for transprt , hospice notidies.
== END 2020-08-17 19:00 | disposition hospice, inpatient (51) | DRG 872 ==
LOC: ANHED 14:54 → ANH3MEDSUR 08-16 00:25
PROVIDERS: Admitting Provider Family Medicine; Emergency Provider Emergency Medicine; Visit Provider Physician Assistant
DX: A41.9 Sepsis, unspecified organism (principal); N17.9 Acute kidney failure, unspecified; N30.00 Acute cystitis without hematuria; F33.40 Major depressive disorder, recurrent, in remission, unspecified; R65.20 Severe sepsis without septic shock; Z20.828 Contact with and (suspected) exposure to other viral communicable diseases; G20 Parkinson's disease; G30.1 Alzheimer's disease with late onset; F02.80 Dementia in other diseases classified elsewhere, unspecified severity, without behavioral disturbance, psychotic disturbance, mood disturbance, and anxiety; I11.0 Hypertensive heart disease with heart failure; I50.9 Heart failure, unspecified; R77.8 Other specified abnormalities of plasma proteins; E11.9 Type 2 diabetes mellitus without complications; Z66 Do not resuscitate; Z87.440 Personal history of urinary (tract) infections
CPT/HCPCS: 36415; 51701; 70450; 71045; 80053; 81001; 82565; 82948; 83605; 84484; 85025; 85610; 85730; 86140; 87040; 87635; 93005; 96361; 96374; 99285; A9270; C9803; J0692; J1956; J2060; J3010; J3370; J7030; U0003